=== PATIENT | male | born 1995 | race Caucasian/White ===

== ENCOUNTER 2019-08-01 03:07 | Emergency (ER) | payer OTHER ==
[~2019-08-01] VITALS: Ht 172.7 cm; Wt 65.8 kg
--- NOTE | 2019-08-01 03:10 | NUR ---
Dr. Marin at bedside for MSE
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
--- NOTE | 2019-08-01 03:15 | NUR ---
[facility] at bedside
--- NOTE | 2019-08-01 03:31 | NUR ---
Patient discharged to home in stable conditon. Written and verbal after care instructions given. Patient verbalizes understanding of instructions. Patient ambulating with steady gait
[2019-08-01 03:32] VITALS: BP 109/66
== END 2019-08-01 03:31 | disposition home or self-care (01) ==
LOC: ER 03:10
DX: F11.10 Opioid abuse, uncomplicated (principal); F32.9 Major depressive disorder, single episode, unspecified; F12.10 Cannabis abuse, uncomplicated; F14.10 Cocaine abuse, uncomplicated
CPT/HCPCS: A4663